=== PATIENT | male | born 1985 | race Caucasian/White ===

== ENCOUNTER 2019-07-11 09:55 | Outpatient (CLI) | payer OTHER ==
[~2019-07-11 09:55] MED LIST: FLUT12HF3 IH; FLUT1DIS IH; FLUT9.9S NAS; IPRA12.9 INH; MONT10TA9 PO; SUMA20SP NAS; TOPI50TA35 PO
[2019-07-11] MEDS ORDERED: GADOTERATE 10 MMOL/20 ML SYR ONE (10:30)
== END 2019-07-11 23:59 | disposition home or self-care (01) ==
LOC: CFH 09:55
PROVIDERS: ATTEND Neurological Surgery
DX: K86.3 Pseudocyst of pancreas (principal); G91.1 Obstructive hydrocephalus; G93.2 Benign intracranial hypertension; J45.909 Unspecified asthma, uncomplicated; G43.909 Migraine, unspecified, not intractable, without status migrainosus; Z88.0 Allergy status to penicillin; Z88.2 Allergy status to sulfonamides; Z91.040 Latex allergy status
CPT/HCPCS: 70546; 70553; A9575

== ENCOUNTER → 2020-04-14 | Outpatient (CLI) | payer OTHER, MEDICAID ==
[~2020-04-14] MED LIST changes: +MONT10TA11 PO; -MONT10TA9 PO
== END | disposition home or self-care (01) ==
LOC: CFH 14:04
PROVIDERS: ATTEND Family Medicine
DX: N50.811 Right testicular pain (principal); N50.812 Left testicular pain; R10.30 Lower abdominal pain, unspecified
CPT/HCPCS: 76857; 76870; 93975

== ENCOUNTER 2020-05-02 08:01 | Inpatient (IN) | payer OTHER, MEDICAID ==
[~2020-05-02] VITALS: Ht 172.7 cm; Wt 90.6 kg
--- NOTE | 2020-05-02 08:18 | NUR ---
Paloma VELÁSQUEZ at bedside to evaluate pt. Pt c/o LUQ abd pain, N/V, reports he feels like he needs to have a BM but can't pass anything. Pt reports last BM yesterday, loose stool. Pt placed in gown, positioned for comfort in bed. Continuous oxygen and BP monitors applied, all safety measures observed.
[2020-05-02] MEDS ORDERED: AMIT25TA PO (08:20)
[2020-05-02] MEDS ORDERED: ESCI20TA10 PO (08:20)
[2020-05-02] MEDS ORDERED: ONDANSETRON 2MG/ML, 2ML ONE (08:25)
[2020-05-02] MEDS ORDERED: MORPHINE SULFATE 4 MG/ML, 1ML ONE ×3 (08:25→21:27)
[2020-05-02] MEDS ORDERED: SODIUM CHLORIDE FLUSH 10ML SYR IVF ONE (08:30)
[2020-05-02] MEDS ORDERED: ONDANSETRON 2MG/ML, 2ML IVPush ONE ×2 (08:30→12:30)
[2020-05-02 08:42] LABS: BASOPHILS % (AUTO) 1 % (0-1); EOSINOPHILS % (AUTO) 3 % (1-7); LYMPHOCYTES % (AUTO) 14 % (22-44); MEAN CORPUSCULAR HEMOGLOBIN 28.2 pg (27.5-34.5); MEAN CORPUSCULAR HGB CONC 33.5 g/dL (33.2-36.2); MONOCYTES % (AUTO) 5 % (2-9); NEUTROPHILS % (AUTO) 78 % (42-75); PLATELET COUNT 292 x10^3/uL (130-400); RED BLOOD COUNT 6.16 x10^6/uL (4.38-5.82)
[2020-05-02] MEDS: MORPHINE SULFATE 4 MG/ML, 1ML IVPush PRN ×3 (08:45→21:36)
[2020-05-02 08:46] LABS: MD NO
[2020-05-02 08:52] LABS: ALANINE AMINOTRANSFERASE 26 U/L (12-78); ALBUMIN 3.9 g/dL (3.4-5.0); CALCIUM 9.3 mg/dL (8.5-10.1); CREATININE 1.08 mg/dL (0.7-1.3)
[2020-05-02 08:54] LABS: ALKALINE PHOSPHATASE 58 U/L (45-117); BILIRUBIN,TOTAL 0.2 mg/dL (0.2-1.0); TOTAL PROTEIN 7.1 g/dL (6.4-8.2)
--- NOTE | 2020-05-02 08:54 | NUR ---
Pt medicated per MAR, able to position self for comfort in bed, denies other needs. POC discussed.
[2020-05-02 08:59] LABS: ANION GAP 5 mmol/L (5-15); CHLORIDE 111 mmol/L (98-107)
--- NOTE | 2020-05-02 09:17 | NUR ---
Pt currently in CT.
--- NOTE | 2020-05-02 09:31 | NUR ---
Pt resting in bed, looking at phone. Pt reports no change in pain after medications. Discussed with Paloma VELÁSQUEZ.
--- NOTE | 2020-05-02 10:20 | NUR ---
Pt ambulatory to bathroom with steady gait to attempt to collect urine sample.
--- NOTE | 2020-05-02 10:32 | NUR ---
Pt medicated for comtinued 04/01 abd pain per request. POC discussed with pt. Pt denies other needs. Pt resting in bed, looking at his phone, KEN.
[2020-05-02 10:40] LABS: MICROSCOPIC NOT IND
--- NOTE | 2020-05-02 11:44 | NUR ---
Pt resting in bed, looking at his phone. Pt reports pain now 7/10, still nauseated. POC discussed. Pt denies other needs.
[2020-05-02] MEDS ORDERED: SODIUM CHLORIDE FLUSH 10ML SYR IVF PRN (12:30)
[2020-05-02] MEDS ORDERED: LABETALOL 5MG/ML, 20ML IVPush PRN (13:00)
[2020-05-02] MEDS ORDERED: SUMATRIPTAN NAS PRN (13:00)
[2020-05-02] MEDS ORDERED: ENALAPRILAT 1.25 MG/ML, 2ML IVPush PRN (13:00)
[2020-05-02] MEDS: LACTATED RINGERS 1,000 ML IV SCH ×2 (14:36→22:33)
[2020-05-02] MEDS: morphine SULFATE 10 MG/ML, 1ML IVPush PRN ×2 (14:53→18:46)
[2020-05-02 14:55] VITALS: BP 113/76
[2020-05-02] MEDS: ONDANSETRON 2MG/ML, 2ML IVPush PRN (18:45)
[2020-05-02 20:01] VITALS: BP 124/72
[2020-05-02] MEDS ORDERED: FLUTICASONE/VILANTEROL 200-25MCG/INH INH SCH (21:00)
[2020-05-02] MEDS: FAMOTIDINE 20 MG/2 ML IVPush SCH (21:36)
[2020-05-02] MEDS: PROMETHAZINE 25 MG/ML, 1ML IM PRN (21:49)
[2020-05-02] MEDS ORDERED: LORazepam 2 MG/ML, 1ML IVPush ONE (23:00)
[2020-05-03 01:44] VITALS: BP 129/78
[2020-05-03] MEDS: ONDANSETRON 2MG/ML, 2ML IVPush PRN ×3 (01:53→16:24)
[2020-05-03] MEDS: MORPHINE SULFATE 4 MG/ML, 1ML IVPush PRN ×2 (01:53→08:47)
[2020-05-03] MEDS: DIPHENHYDRAMINE 50 MG/ML, 1ML IVPush PRN (02:19)
[2020-05-03] MEDS: KETOROLAC 30 MG/1 ML IV PRN ×2 (04:38→20:31)
[2020-05-03] MEDS: PROMETHAZINE 25 MG/ML, 1ML IM PRN ×2 (04:38→20:31)
[2020-05-03 05:21] LABS: ANION GAP 2 mmol/L (5-15); BASOPHILS % (AUTO) 1 % (0-1); CALCIUM 8.6 mg/dL (8.5-10.1); CHLORIDE 109 mmol/L (98-107); CREATININE 1.07 mg/dL (0.7-1.3); EOSINOPHILS % (AUTO) 4 % (1-7); LYMPHOCYTES % (AUTO) 33 % (22-44); MEAN CORPUSCULAR HEMOGLOBIN 28.3 pg (27.5-34.5); MEAN CORPUSCULAR HGB CONC 33.3 g/dL (33.2-36.2); MEAN PLATELET VOLUME 8.1 fL (7.4-10.4); MONOCYTES % (AUTO) 6 % (2-9); NEUTROPHILS % (AUTO) 56 % (42-75); PLATELET COUNT 264 x10^3/uL (130-400); RED BLOOD COUNT 5.53 x10^6/uL (4.38-5.82); RED CELL DISTRIBUTION WIDTH 14.5 % (9.4-14.8)
[2020-05-03 05:27] LABS: MD NO
[2020-05-03] MEDS: LACTATED RINGERS 1,000 ML IV SCH ×3 (05:52→22:00)
[2020-05-03 07:06] VITALS: BP 110/69
[2020-05-03] MEDS: FAMOTIDINE 20 MG/2 ML IVPush SCH ×2 (08:45→20:31)
[2020-05-03 08:53] VITALS: BP 103/71
[2020-05-03] MEDS: FLUTICASONE/VILANTEROL 200-25MCG/INH INH SCH (10:06)
[2020-05-03] MEDS ORDERED: HYDROmorphone 1 MG/ML, 1ML INJ IV PRN ×2 (11:00→14:30)
[2020-05-03] MEDS ORDERED: MAALOX/HYOSCYAMINE/LIDOCAINE 45 ML BTL PO PRN (11:00)
[2020-05-03] MEDS ORDERED: CHLORHEXIDINE 15 ML UDC MM STA (11:17)
[2020-05-03] MEDS ORDERED: CHLORHEXIDINE 15 ML UDC ONE (11:19)
[2020-05-03] MEDS ORDERED: FENTANYL PF 250 MCG/5ML ONE (12:08)
[2020-05-03] MEDS ORDERED: MIDAZOLAM 1 MG/ML, 2ML ONE (12:08)
[2020-05-03] MEDS ORDERED: ROCURONIUM 10 MG/ML,10ML ONE (12:21)
[2020-05-03] MEDS ORDERED: PROPOFOL 10 MG/ML, 20ML ONE (12:21)
[2020-05-03] MEDS ORDERED: DEXAMETHASONE 4 MG/ML, 1ML ONE (12:21)
[2020-05-03] MEDS ORDERED: SUCCINYLCHOLINE 20 MG/ML, 10ML ONE (12:21)
[2020-05-03] MEDS ORDERED: ONDANSETRON 2MG/ML, 2ML ONE (12:21)
[2020-05-03] MEDS ORDERED: CEFOTETAN 2 GM ONE (12:21)
[2020-05-03] MEDS ORDERED: DIAZEPAM 5 MG/ML, 2ML IV PRN (14:30)
[2020-05-03] MEDS ORDERED: MEPERIDINE/PF 25MG/0.5ML IVPush PRN (14:30)
[2020-05-03] MEDS ORDERED: ALBUTEROL SULFATE 2.5 MG/3 ML NPPB PRN (14:30)
[2020-05-03] MEDS ORDERED: LABETALOL 5MG/ML, 20ML IV PRN (14:30)
[2020-05-03] MEDS ORDERED: KETOROLAC 30 MG/1 ML IV PRN (14:30)
[2020-05-03] MEDS ORDERED: OXYcodone 5 MG/5 ML ORAL.SOL UDC PO PRN (14:30)
[2020-05-03] MEDS ORDERED: hydrALAzine 20 MG/ML, 1ML IV PRN (14:30)
[2020-05-03] MEDS ORDERED: IPRATROPIUM HFA 17 MCG/INH INH PRN (14:30)
[2020-05-03] MEDS ORDERED: ONDANSETRON 2MG/ML, 2ML IVPush PRN (14:30)
[2020-05-03] MEDS ORDERED: PROMETHAZINE 25 MG/ML, 1ML IV PRN (14:30)
[2020-05-03] MEDS ORDERED: METOCLOPRAMIDE 5 MG/ML, 2ML IV PRN (14:30)
[2020-05-03] MEDS ORDERED: DIAZEPAM 5 MG/ML, 10ML VIAL IV PRN (14:30)
[2020-05-03] MEDS ORDERED: FENTANYL PF 100 MCG/2ML ONE ×2 (14:41→15:04)
[2020-05-03] MEDS: FENTANYL PF 100 MCG/2ML IV PRN ×4 (14:42→15:27)
[2020-05-03] MEDS: LORazepam 0.5MG TABLET PO PRN (18:28)
[2020-05-03] MEDS ORDERED: LACTATED RINGERS 1,000 ML IVBOLUS ONE (18:30)
[2020-05-03 20:23] VITALS: BP 109/73
[2020-05-04 00:10] VITALS: BP 112/70
[2020-05-04] MEDS: ONDANSETRON 2MG/ML, 2ML IVPush PRN ×4 (00:19→16:33)
[2020-05-04] MEDS: DIPHENHYDRAMINE 50 MG/ML, 1ML IVPush PRN ×4 (00:24→20:11)
[2020-05-04] MEDS: LORazepam 0.5MG TABLET PO PRN ×2 (02:34→11:49)
[2020-05-04] MEDS: KETOROLAC 30 MG/1 ML IV PRN ×3 (02:35→20:25)
[2020-05-04 04:18] VITALS: BP 104/74
[2020-05-04] MEDS: LACTATED RINGERS 1,000 ML IV SCH ×3 (04:20→20:58)
[2020-05-04 06:32] LABS: BASOPHILS % (AUTO) 0 % (0-1); EOSINOPHILS % (AUTO) 1 % (1-7); LYMPHOCYTES % (AUTO) 12 % (22-44); MEAN CORPUSCULAR HEMOGLOBIN 28.3 pg (27.5-34.5); MEAN CORPUSCULAR HGB CONC 33.2 g/dL (33.2-36.2); MEAN PLATELET VOLUME 8.1 fL (7.4-10.4); MONOCYTES % (AUTO) 10 % (2-9); NEUTROPHILS % (AUTO) 78 % (42-75); PLATELET COUNT 239 x10^3/uL (130-400); RED BLOOD COUNT 5.36 x10^6/uL (4.38-5.82); RED CELL DISTRIBUTION WIDTH 14.8 % (9.4-14.8)
[2020-05-04 06:40] LABS: ALBUMIN 3.1 g/dL (3.4-5.0); ANION GAP 4 mmol/L (5-15); CALCIUM 8.5 mg/dL (8.5-10.1); CHLORIDE 102 mmol/L (98-107)
[2020-05-04 06:43] LABS: ALANINE AMINOTRANSFERASE 21 U/L (12-78); ALKALINE PHOSPHATASE 49 U/L (45-117); BILIRUBIN,TOTAL 0.8 mg/dL (0.2-1.0); CREATININE 1.01 mg/dL (0.7-1.3); TOTAL PROTEIN 6.3 g/dL (6.4-8.2)
[2020-05-04 06:48] LABS: MD NO
[2020-05-04 06:59] VITALS: BP 118/77
[2020-05-04] MEDS: FLUTICASONE/VILANTEROL 200-25MCG/INH INH SCH (08:00)
[2020-05-04] MEDS: FAMOTIDINE 20 MG/2 ML IVPush SCH ×2 (09:02→20:11)
[2020-05-04 14:15] VITALS: BP 126/82
[2020-05-04] MEDS ORDERED: ESCI5TAB7 PO (16:36)
[2020-05-04] MEDS ORDERED: AMIT10TA PO (17:46)
[2020-05-04 20:49] VITALS: BP 119/80
[2020-05-04] MEDS: AMITRIPTYLINE 10 MG TABLET PO SCH (21:01)
[2020-05-04] MEDS: ESCITALOPRAM 10MG TABLET PO SCH (21:02)
[2020-05-05 01:18] VITALS: BP 126/82
[2020-05-05] MEDS: ONDANSETRON 2MG/ML, 2ML IVPush PRN ×2 (01:35→09:44)
[2020-05-05] MEDS: LACTATED RINGERS 1,000 ML IV SCH ×3 (04:00→21:34)
[2020-05-05] MEDS: KETOROLAC 30 MG/1 ML IV PRN ×3 (04:08→16:24)
[2020-05-05] MEDS: DIPHENHYDRAMINE 50 MG/ML, 1ML IVPush PRN ×3 (04:08→16:24)
[2020-05-05 04:51] LABS: BASOPHILS % (AUTO) 0 % (0-1); EOSINOPHILS % (AUTO) 2 % (1-7); LYMPHOCYTES % (AUTO) 10 % (22-44); MEAN CORPUSCULAR HEMOGLOBIN 28.4 pg (27.5-34.5); MEAN CORPUSCULAR HGB CONC 33.4 g/dL (33.2-36.2); MONOCYTES % (AUTO) 10 % (2-9); NEUTROPHILS % (AUTO) 77 % (42-75); PLATELET COUNT 219 x10^3/uL (130-400); RED BLOOD COUNT 4.94 x10^6/uL (4.38-5.82); RED CELL DISTRIBUTION WIDTH 14.5 % (9.4-14.8)
[2020-05-05 04:54] LABS: ANION GAP 3 mmol/L (5-15); CHLORIDE 100 mmol/L (98-107)
[2020-05-05 04:56] LABS: CALCIUM 8.8 mg/dL (8.5-10.1); CREATININE 0.93 mg/dL (0.7-1.3)
[2020-05-05 05:06] LABS: MD NO
[2020-05-05 07:57] VITALS: BP 116/70
[2020-05-05] MEDS: FLUTICASONE/VILANTEROL 200-25MCG/INH INH SCH (08:24)
[2020-05-05] MEDS: FAMOTIDINE 20 MG/2 ML IVPush SCH ×2 (09:44→21:31)
[2020-05-05 13:01] VITALS: BP 112/74
[2020-05-05] MEDS: LORazepam 0.5MG TABLET PO PRN (13:39)
[2020-05-05] MEDS: ONDANSETRON ODT 4 MG PO PRN (16:24)
[2020-05-05] MEDS: PROMETHAZINE 25 MG/ML, 1ML IM PRN (17:08)
[2020-05-05 19:44] VITALS: BP 107/55
[2020-05-05] MEDS: ESCITALOPRAM 10MG TABLET PO SCH (21:31)
[2020-05-05] MEDS: AMITRIPTYLINE 10 MG TABLET PO SCH (21:32)
[2020-05-06] MEDS: KETOROLAC 30 MG/1 ML IV PRN ×4 (01:00→22:14)
[2020-05-06] MEDS: ONDANSETRON 2MG/ML, 2ML IVPush PRN ×4 (01:00→22:14)
[2020-05-06] MEDS: DIPHENHYDRAMINE 50 MG/ML, 1ML IVPush PRN ×4 (01:00→22:14)
[2020-05-06 03:05] VITALS: BP 107/68
[2020-05-06] MEDS: LACTATED RINGERS 1,000 ML IV SCH ×3 (06:00→22:24)
[2020-05-06 07:10] VITALS: BP 125/76
[2020-05-06] MEDS: FAMOTIDINE 20 MG/2 ML IVPush SCH ×2 (08:53→21:11)
[2020-05-06] MEDS: FLUTICASONE/VILANTEROL 200-25MCG/INH INH SCH (08:55)
[2020-05-06 13:05] VITALS: BP 107/63
[2020-05-06] MEDS: LORazepam 0.5MG TABLET PO PRN (17:18)
[2020-05-06 18:50] VITALS: BP 128/81
[2020-05-06] MEDS: ESCITALOPRAM 10MG TABLET PO SCH (21:11)
[2020-05-06] MEDS: AMITRIPTYLINE 10 MG TABLET PO SCH (21:11)
[2020-05-07 00:24] VITALS: BP 114/65
[2020-05-07] MEDS: DIPHENHYDRAMINE 50 MG/ML, 1ML IVPush PRN ×4 (04:54→23:58)
[2020-05-07] MEDS: LACTATED RINGERS 1,000 ML IV SCH ×3 (04:54→21:27)
[2020-05-07] MEDS: KETOROLAC 30 MG/1 ML IV PRN ×2 (04:54→11:42)
[2020-05-07] MEDS: ONDANSETRON 2MG/ML, 2ML IVPush PRN ×4 (04:54→23:58)
[2020-05-07] MEDS: LORazepam 0.5MG TABLET PO PRN (06:48)
[2020-05-07 08:00] VITALS: BP 99/63
[2020-05-07] MEDS: FLUTICASONE/VILANTEROL 200-25MCG/INH INH SCH (08:14)
[2020-05-07] MEDS: FAMOTIDINE 20 MG/2 ML IVPush SCH ×2 (08:33→20:06)
[2020-05-07] MEDS: ONDANSETRON ODT 4 MG PO PRN (11:42)
[2020-05-07 13:06] VITALS: BP 122/74
[2020-05-07 19:11] VITALS: BP 125/79
[2020-05-07] MEDS: AMITRIPTYLINE 10 MG TABLET PO SCH (20:05)
[2020-05-07] MEDS: ESCITALOPRAM 10MG TABLET PO SCH (20:06)
[2020-05-08 00:04] VITALS: BP 122/73
[2020-05-08] MEDS: PROMETHAZINE 25 MG/ML, 1ML IM PRN ×2 (03:50→17:32)
[2020-05-08] MEDS: LACTATED RINGERS 1,000 ML IV SCH ×3 (06:10→21:13)
[2020-05-08] MEDS: ONDANSETRON 2MG/ML, 2ML IVPush PRN ×3 (06:10→19:45)
[2020-05-08] MEDS: DIPHENHYDRAMINE 50 MG/ML, 1ML IVPush PRN ×3 (06:10→19:45)
[2020-05-08 06:42] VITALS: BP 103/62
[2020-05-08] MEDS: FAMOTIDINE 20 MG/2 ML IVPush SCH (07:41)
[2020-05-08] MEDS: FLUTICASONE/VILANTEROL 200-25MCG/INH INH SCH (08:18)
[2020-05-08 12:25] VITALS: BP 116/70
[2020-05-08 12:59] VITALS: BP 123/80
[2020-05-08 18:52] VITALS: BP 109/69
[2020-05-08] MEDS ORDERED: FAMOTIDINE 40 MG TABLET ONE (19:57)
[2020-05-08] MEDS: AMITRIPTYLINE 10 MG TABLET PO SCH (20:00)
[2020-05-08] MEDS: ESCITALOPRAM 10MG TABLET PO SCH (20:00)
[2020-05-08] MEDS: FAMOTIDINE 20 MG TABLET PO SCH (20:01)
[2020-05-09 00:11] VITALS: BP 118/72
[2020-05-09] MEDS: ONDANSETRON 2MG/ML, 2ML IVPush PRN ×4 (02:54→23:11)
[2020-05-09] MEDS: DIPHENHYDRAMINE 50 MG/ML, 1ML IVPush PRN ×3 (02:54→17:08)
[2020-05-09] MEDS: LACTATED RINGERS 1,000 ML IV SCH ×3 (05:04→20:21)
[2020-05-09] MEDS: PROMETHAZINE 25 MG/ML, 1ML IM PRN ×2 (06:41→22:19)
[2020-05-09 07:09] VITALS: BP 115/81
[2020-05-09] MEDS: FLUTICASONE/VILANTEROL 200-25MCG/INH INH SCH (09:30)
[2020-05-09] MEDS ORDERED: FAMOTIDINE 40 MG TABLET ONE ×2 (10:08→20:14)
[2020-05-09] MEDS: FAMOTIDINE 20 MG TABLET PO SCH ×2 (10:31→20:19)
[2020-05-09] MEDS ORDERED: BISACODYL 10 MG SUPP PR PRN (11:00)
[2020-05-09 14:00] VITALS: BP 113/70
[2020-05-09] MEDS: BISACODYL 10 MG SUPP PR PRN (14:53)
[2020-05-09 19:35] VITALS: BP 133/91
[2020-05-09] MEDS: AMITRIPTYLINE 10 MG TABLET PO SCH (20:17)
[2020-05-09] MEDS: ESCITALOPRAM 10MG TABLET PO SCH (20:18)
[2020-05-09] MEDS: LORazepam 0.5MG TABLET PO PRN (20:18)
[2020-05-10] MEDS: DIPHENHYDRAMINE 50 MG/ML, 1ML IVPush PRN ×4 (00:22→20:28)
[2020-05-10 02:46] VITALS: BP 119/83
[2020-05-10] MEDS: PROMETHAZINE 25 MG/ML, 1ML IM PRN ×2 (02:46→23:02)
[2020-05-10] MEDS: LACTATED RINGERS 1,000 ML IV SCH ×3 (03:38→20:26)
[2020-05-10] MEDS: ONDANSETRON 2MG/ML, 2ML IVPush PRN ×3 (05:19→20:39)
[2020-05-10 07:15] VITALS: BP 108/67
[2020-05-10] MEDS: FLUTICASONE/VILANTEROL 200-25MCG/INH INH SCH (08:51)
[2020-05-10] MEDS ORDERED: FAMOTIDINE 40 MG TABLET ONE (10:19)
[2020-05-10] MEDS: FAMOTIDINE 20 MG TABLET PO SCH ×2 (11:35→20:29)
[2020-05-10 11:45] VITALS: BP 124/81
[2020-05-10 14:00] VITALS: BP 118/73
[2020-05-10 14:28] LABS: BASOPHILS % (AUTO) 1 % (0-1); EOSINOPHILS % (AUTO) 5 % (1-7); LYMPHOCYTES % (AUTO) 14 % (22-44); MEAN CORPUSCULAR HEMOGLOBIN 28.6 pg (27.5-34.5); MEAN CORPUSCULAR HGB CONC 33.1 g/dL (33.2-36.2); MEAN PLATELET VOLUME 7.3 fL (7.4-10.4); MONOCYTES % (AUTO) 7 % (2-9); NEUTROPHILS % (AUTO) 74 % (42-75); PLATELET COUNT 335 x10^3/uL (130-400); RED BLOOD COUNT 6.02 x10^6/uL (4.38-5.82)
[2020-05-10] MEDS: BISACODYL 10 MG SUPP PR PRN (14:33)
[2020-05-10 14:38] LABS: ANION GAP 4 mmol/L (5-15); CALCIUM 9.8 mg/dL (8.5-10.1); CHLORIDE 101 mmol/L (98-107); CREATININE 0.94 mg/dL (0.7-1.3)
[2020-05-10 14:53] LABS: MD SCAN
[2020-05-10 19:32] VITALS: BP 107/62
[2020-05-10] MEDS: AMITRIPTYLINE 10 MG TABLET PO SCH (20:27)
[2020-05-10] MEDS: ESCITALOPRAM 10MG TABLET PO SCH (20:28)
[2020-05-11 03:59] VITALS: BP 106/69
[2020-05-11] MEDS: DIPHENHYDRAMINE 50 MG/ML, 1ML IVPush PRN (04:49)
[2020-05-11] MEDS: ONDANSETRON 2MG/ML, 2ML IVPush PRN (04:49)
[2020-05-11] MEDS: LACTATED RINGERS 1,000 ML IV SCH ×2 (04:50→13:00)
[2020-05-11 07:30] VITALS: BP 104/66
[2020-05-11] MEDS: FLUTICASONE/VILANTEROL 200-25MCG/INH INH SCH (07:55)
[2020-05-11] MEDS ORDERED: FAMOTIDINE 40 MG TABLET ONE (08:59)
[2020-05-11] MEDS: FAMOTIDINE 20 MG TABLET PO SCH (09:06)
[2020-05-11 13:00] VITALS: BP 110/74
== END 2020-05-11 15:30 | disposition home or self-care (01) | DRG 336 ==
LOC: ED 09:37 → EDIP 12:53 → 3N 13:49 → 4NE 05-03 16:00 → DCLOUNGE 05-11 15:22
PROVIDERS: ADMIT Hospitalist; ATTEND Family Medicine
PROC: 0DNB0ZZ Release Ileum, Open Approach (ICD-10-PCS; principal; 2020-05-03 15:00)
DX: K56.600 Partial intestinal obstruction, unspecified as to cause (principal); R65.10 Systemic inflammatory response syndrome (SIRS) of non-infectious origin without acute organ dysfunction; Z20.828 Contact with and (suspected) exposure to other viral communicable diseases; E86.0 Dehydration; F43.12 Post-traumatic stress disorder, chronic; G43.909 Migraine, unspecified, not intractable, without status migrainosus; Z88.2 Allergy status to sulfonamides; Z88.8 Allergy status to other drugs, medicaments and biological substances; Z91.040 Latex allergy status; Z91.018 Allergy to other foods; Z91.010 Allergy to peanuts; Z88.0 Allergy status to penicillin; Z91.013 Allergy to seafood; Z98.2 Presence of cerebrospinal fluid drainage device; K66.0 Peritoneal adhesions (postprocedural) (postinfection); K42.9 Umbilical hernia without obstruction or gangrene; M54.81 Occipital neuralgia; J45.909 Unspecified asthma, uncomplicated; D72.829 Elevated white blood cell count, unspecified
CPT/HCPCS: 36415; 74018; 74177; 80048; 80053; 81003; 83690; 83735; 84100; 85025; 87635; 94640; 96374; G0378; J1100; J1170; J1885; J2250; J2270; J2405; J2550; J2704; J3010; J3360; Q0162; C1765; J0330; J1200; J2060; J7120

== ENCOUNTER → 2020-07-08 | Outpatient (CLI) | payer OTHER, MEDICAID ==
[~2020-07-08] MED LIST changes: +AMIT10TA PO; +AMIT25TA PO; +ESCI20TA10 PO; +ESCI5TAB7 PO; -MONT10TA11 PO; +MONT10TA96 PO
== END | disposition home or self-care (01) ==
LOC: RAD 09:31
PROVIDERS: ATTEND Nurse Practitioner Family
DX: R14.0 Abdominal distension (gaseous) (principal); R10.11 Right upper quadrant pain; R19.7 Diarrhea, unspecified; G91.9 Hydrocephalus, unspecified
CPT/HCPCS: 70450; 78227; A9537